=== PATIENT | male | born 1975 | race Caucasian/White ===

== ENCOUNTER → 2024-09-28 09:19 | Outpatient (REF) | payer OTHER, SELFPAY | LOC: RAD 09:19 | PROVIDERS: ATTENDING PHYSICIAN Otolaryngology; FAMILY PHYSICIAN Family Medicine | DX: R13.10 Dysphagia, unspecified (principal) | CPT/HCPCS: 74221 ==

== ENCOUNTER → 2025-05-17 11:54 | Outpatient (REF) | payer OTHER, SELFPAY | LOC: RAD 11:54 | PROVIDERS: ATTENDING PHYSICIAN Physician Assistant | DX: R06.2 Wheezing (principal) | CPT/HCPCS: 71046 ==

== ENCOUNTER → 2025-07-15 15:46 | Outpatient (REF) | payer OTHER, SELFPAY | LOC: RAD 15:46 | PROVIDERS: ATTENDING PHYSICIAN Student in an Organized Health Care Education/Training Program; FAMILY PHYSICIAN Physician Assistant | DX: R06.01 Orthopnea (principal) | CPT/HCPCS: 70491; Q9967 ==

== ENCOUNTER 2025-08-01 06:17 | Day surgery (SDC) | payer OTHER, SELFPAY ==
[2025-08-01] VITALS (8 sets, daily range): BP systolic 140–164; BP diastolic 79–97; BMI 33.3
[2025-08-01] MEDS: NORMOSOL-R/PLASMALYTE-A 1000 IV (08:07)
--- NOTE | 2025-08-01 10:54 | OR.RPT ---
Operative Report
Operative Report
Patient name: Jayesh Mason
Date of : 1975

Date of procedure: 08/01/2025
Diagnosis: Stridor-inspiratory and expiratory; dyspnea
Procedures performed: MicroDirect laryngoscopy; bronchoscopy
Surgeon: Rm Cardona DO
Anesthesia: General, spontaneous ventilation followed by full GA
Anesthesiologist: Dr. Schuster
Procedure: MicroDirect laryngoscopy and bronchoscopy
Surgical indications: Jayesh Mason is a 50-year-old male who presents to the otolaryngology office with a chief complaint of inspiratory and expiratory stridor. He had previously been seen by pulmonology and had reportedly normal pulmonary
function testing and no clear cause for his inspiratory expiratory breath sounds was identified. A CT soft tissue neck with contrast was performed which showed grossly normal upper airway anatomy, no extrinsic compression or mass effect upon the
airways. No adenopathy. As the patient was very bothered by symptoms and concerned and he also had a chronic cough, recommendation was made for MicroDirect laryngoscopy and bronchoscopy for intraluminal evaluation of the airways.
Details of procedure: The patient was met in the preoperative holding area where informed written consent was reviewed and all questions were answered. The patient was then brought back to the operating room and transferred supine to the operating
room table. A high flow nasal cannula mask was placed. A surgical timeout was performed confirming the necessary perioperative information. The table was rotated 90 degrees away from anesthesia. General anesthesia was induced with propofol but
the patient's spontaneous ventilation was preserved. Once the patient was sedated deep enough, a size 3 Mac laryngoscope was used to visualize the larynx and 2.5 cc of 1% lidocaine without epinephrine was used to topically anesthetize the larynx
and upper airways. After more time for adequate depth of anesthesia, a Dedo laryngoscope was then used to perform direct laryngoscopy after a dental guard was placed to protect the upper dentition. The oral cavity, pharynx, hypopharynx and larynx
were all normal. After direct laryngoscopy, the Dedo laryngoscope was suspended using a Lewy arm and positioned over the patient's chest with adequate padding. Next a size 5 mm flexible bronchoscope was introduced through the laryngoscope and
MicroDirect laryngoscopy was then performed and again the larynx and true vocal folds were normal. The subglottis was normal in shape and caliber. The proximal, mid and distal tracheal segments were all normal. There were normal C shaped
cartilaginous rings. There was a normal posterior membranous trachea. There was no tracheomalacia. The abiola was mildly thickened which could be related to his chronic cough and mucus. The bilateral main bronchi were normal. The bilateral
secondary and tertiary bronchi were normal this concluded bronchoscopy and MicroDirect laryngoscopy under spontaneous ventilation. Next the bronchoscope was removed and an 8.0 endotracheal tube was introduced through the laryngoscope and the
patient was intubated and the Seldinger technique. The tube was then secured to the lower left lip and a bronchoscope adapter was attached to the end of the endotracheal tube. Bronchoscopy was then performed again through the endotracheal tube and
again the distal tracheal segment was normal, the main bronchi, secondary tertiary bronchi were all normal. There was slightly more mucus in the left secondary bronchi compared to the right but this did not seem to explain his symptoms. This
concluded the procedure. The patient was then rotated back to the anesthesia team where he emerged safely from anesthesia and was extubated without difficulty to high flow nasal cannula. He was then transition to nonrebreather mask and taken to
the PACU in stable condition.
Complications: None immediately present
Blood loss: 1 cc
Disposition: Stable to PACU followed by discharge to home.
[2025-08-01] MEDS: DUONEB 3 ML INH (11:14)
== END 2025-08-01 12:08 | disposition home or self-care (01) ==
LOC: SDS 06:17
PROVIDERS: ATTENDING PHYSICIAN Student in an Organized Health Care Education/Training Program
DX: R06.00 Dyspnea, unspecified (principal); R06.1 Stridor
CPT/HCPCS: 31525; 94640